=== PATIENT | female | born 1995 | race Caucasian/White ===

== ENCOUNTER → 2020-07-25 | Outpatient (CLI) | payer BC ==
[~2020-07-25] MED LIST: ONDA4ODT MM; Purinethol50 MG PO
== END | disposition home or self-care (01) ==
LOC: PLD 17:24 → LAB SHORT 17:24
DX: N94.10 Unspecified dyspareunia (principal); K62.89 Other specified diseases of anus and rectum; K51.50 Left sided colitis without complications
CPT/HCPCS: 83993

== ENCOUNTER 2020-11-18 04:14 | Emergency (ER) | payer BC ==
[~2020-11-18] VITALS: Ht 167.6 cm; Wt 74.8 kg
[2020-11-18] MEDS ORDERED: Purinethol50 MG PO (04:26)
[2020-11-18 04:44] LABS: Source, Urine Clean Catch
[2020-11-18 04:46] LABS: Appearance, Urine Clear (Clear); Blood, Urine 1+ (Neg); Color, Urine Yellow (P-Yellow); Glucose Qualitative, Urine Neg (Neg); Ketones, Urine Neg (Neg); Leukocyte Esterase, Urine Neg (Neg); Nitrite, Urine Neg (Neg); Protein, Urine Neg (Neg); Specific Gravity, Urine 1.025 (1.003-1.022); Urobilinogen, Urine NORM (Normal)
[2020-11-18 04:49] LABS: Bilirubin, Urine 1+ (Neg)
[2020-11-18 04:56] LABS: Red Blood Cells, Urine 0-2 /hpf (0-2); Squamous Epithelial Cells Few /hpf (Few)
[2020-11-18 04:57] LABS: Bacteria Many /hpf; Mucus Light (0-Heavy)
[2020-11-18 05:07] LABS: BASOPHILS ABSOLUTE AUTO 0.04 K/mm3 (0.00-0.23); BASOPHILS PERCENT AUTO 0 % (0-2); EOSINOPHILS ABSOLUTE AUTO 0.17 K/mm3 (0.00-0.68); EOSINOPHILS PERCENT AUTO 1 % (0-6); Hematocrit 41.7 % (33.0-51.0); Hemoglobin 13.9 g/dL (11.5-16.0); IMMATURE GRAN ABSOLUTE AUTO 0.09 K/mm3 (0.00-0.10); IMMATURE GRAN PERCENT AUTO 1 % (0-1); LYMPHOCYTES ABSOLUTE AUTO 1.79 K/mm3 (0.84-5.20); LYMPHOCYTES PERCENT AUTO 12 % (21-46); MONOCYTES ABSOLUTE AUTO 0.92 K/mm3 (0.16-1.47); MONOCYTES PERCENT AUTO 6 % (4-13); Mean Corpuscular HGB 31.1 pg (26.0-34.0); Mean Corpuscular HGB Conc 33.3 g/dL (31.5-36.5); Mean Corpuscular Volume 93 fL (80-100); Mean Platelet Volume 10.8 fL (9.1-12.4); NEUTROPHILS PERCENT AUTO 81 % (41-73); Platelet Count 330 K/mm3 (150-400); RDW Coefficient Variation 13.1 % (11.7-14.2); Red Blood Cell Count 4.47 M/mm3 (3.80-5.20); White Blood Cell Count 15.51 K/mm3 (4.00-11.30)
[2020-11-18 05:31] LABS: Alanine Aminotransfer (ALT/SGP 22 U/L (12-78); Albumin, Blood 3.7 g/dL (3.4-5.0); Albumin/Globulin Ratio 0.9 (0.8-1.8); Alk Phos 54 U/L (50-136); Anion Gap 6 mmol/L (6-16); Aspartate Aminotrans (AST/SGOT 15 U/L (12-37); Bilirubin, Total 0.9 mg/dL (0.1-1.0); Blood Urea Nitrogen 12 mg/dL (8-24); Bun/Creatinine Ratio 14.3 (12.0-20.0); CO2, Blood 24 mmol/L (21-32); Calcium, Blood 9.6 mg/dL (8.5-10.1); Chloride, Blood 107 mmol/L (98-108); Creatinine, Blood 0.84 mg/dL (0.40-1.00); Globulin, Blood 3.9 g/dL (2.2-4.0); Glomerular Filtration Rate >60 (60-); Glucose, Blood 103 mg/dL (70-99); Potassium, Blood 3.5 mmol/L (3.5-5.5); Sodium, Blood 137 mmol/L (136-145); Total Protein, Blood 7.6 g/dL (6.4-8.2); Troponin I <0.015 ng/mL (0.000-0.040)
[2020-11-18 07:28] LABS: Adenovirus F 40/41 Not Detected (NOT DETECT); Astrovirus Not Detected (NOT DETECT); Campylobacter Sp Not Detected (NOT DETECT); Cryptosporidium Not Detected (NOT DETECT); Cyclospora Cayetanensis Not Detected (NOT DETECT); E. Coli O157 Not Detected (NOT DETECT); Entamoeba Histolytica Not Detected (NOT DETECT); Enteroaggregative E. coli-EAEC Not Detected (NOT DETECT); Enteropathogenic E. coli-EPEC Detected (NOT DETECT); Enterotoxigenic E. coli-ETEC Not Detected (NOT DETECT); Giardia Lamblia Not Detected (NOT DETECT); Norovirus GI/GII Not Detected (NOT DETECT); Plesiomonas Shigelloides Not Detected (NOT DETECT); Rotavirus A Not Detected (NOT DETECT); Salmonella Sp Not Detected (NOT DETECT); Shiga Toxin-prod E. coli-STEC Not Detected (NOT DETECT); Shigella/Enteroin E. coli-EIEC Not Detected (NOT DETECT); Vibrio Cholerae Not Detected (NOT DETECT); Vibrio Sp Not Detected (NOT DETECT); Yersinia Enterocolitica Not Detected (NOT DETECT)
[2020-11-18 07:29] LABS: Sapovirus Not Detected (NOT DETECT)
[2020-11-18] MEDS ORDERED: ONDA4ODT MM (08:23)
== END 2020-11-18 08:42 | disposition home or self-care (01) ==
LOC: ER 04:14
PROVIDERS: Emergency Medicine
DX: A04.4 Other intestinal Escherichia coli infections (principal)
CPT/HCPCS: 0097U; 36415; 74177; 80053; 81001; 83690; 84484; 84703; 85025; 87086; 93005; 93010; 96374-59; 96375; 99284-25; A9270; J1885; J2405; Q9967

== ENCOUNTER → 2022-07-01 | Outpatient (CLI) | payer BC ==
[2022-07-03 04:09] LABS: CHLAMYDIA TRACHOMATIS, NAA Negative (Negative)
== END | disposition home or self-care (01) ==
LOC: LAB SHORT 13:50 → LAB 13:50
PROVIDERS: Registered Nurse Community Health
DX: Z34.92 Encounter for supervision of normal pregnancy, unspecified, second trimester (principal)
CPT/HCPCS: 87491; 87591

== ENCOUNTER → 2022-09-30 | Outpatient (CLI) | payer BC ==
[2022-09-30 17:52] LABS: Hematocrit 38.1 % (33.0-51.0); Hemoglobin 12.5 g/dL (11.5-16.0)
== END | disposition home or self-care (01) ==
LOC: LAB 17:09 → LAB SHORT 17:09
PROVIDERS: Registered Nurse Community Health
DX: Z34.92 Encounter for supervision of normal pregnancy, unspecified, second trimester (principal)
CPT/HCPCS: 82950; 85014; 85018

== ENCOUNTER → 2023-05-25 | Outpatient (CLI) | payer BC ==
[~2023-05-25] MED LIST changes: +DOCU100 PO; +MAGNESIUM OXID500 MG PO; +PRENATAL TABLE1 EAC2 PO
== END | disposition home or self-care (01) ==
LOC: LAB SHORT 14:35 → LAB 14:35
DX: R53.83 Other fatigue (principal)
CPT/HCPCS: 84443

== ENCOUNTER → 2024-03-06 | Outpatient (CLI) | payer BC ==
[2024-03-06 13:59] LABS: Source, Urine Clean Catch
[2024-03-06 15:50] LABS: BASOPHILS ABSOLUTE AUTO 0.03 K/mm3 (0.00-0.23); BASOPHILS PERCENT AUTO 0 % (0-2); EOSINOPHILS PERCENT AUTO 1 % (0-6); Hemoglobin 14.1 g/dL (11.5-16.0); IMMATURE GRAN ABSOLUTE AUTO 0.03 K/mm3 (0.00-0.10); IMMATURE GRAN PERCENT AUTO 0 % (0-1); LYMPHOCYTES ABSOLUTE AUTO 1.94 K/mm3 (0.84-5.20); LYMPHOCYTES PERCENT AUTO 22 % (21-46); MONOCYTES ABSOLUTE AUTO 0.54 K/mm3 (0.16-1.47); MONOCYTES PERCENT AUTO 6 % (4-13); Mean Corpuscular HGB 29.3 pg (26.0-34.0); Mean Corpuscular HGB Conc 33.6 g/dL (31.5-36.5); Mean Corpuscular Volume 87 fL (80-100); Mean Platelet Volume 10.9 fL (9.1-12.4); NEUTROPHILS ABSOLUTE AUTO 6.32 K/mm3 (1.96-9.15); NEUTROPHILS PERCENT AUTO 71 % (41-73); Platelet Count 288 K/mm3 (150-400); RDW Coefficient Variation 12.5 % (11.7-14.2); RDW Standard Deviation 39.7 fL (35.1-46.3); Red Blood Cell Count 4.82 M/mm3 (3.80-5.20); White Blood Cell Count 8.96 K/mm3 (4.00-11.30)
[2024-03-06 16:33] LABS: Appearance, Urine Clear (Clear); Bilirubin, Urine Neg (Neg); Blood, Urine Neg (Neg); Color, Urine Yellow (P-Yellow); Glucose Qualitative, Urine Neg (Neg); Ketones, Urine Neg (Neg); Leukocyte Esterase, Urine Neg (Neg); Nitrite, Urine Neg (Neg); Protein, Urine Neg (Neg); Urobilinogen, Urine NORM (Normal)
[2024-03-07 15:50] LABS: HEPATITIS B SURFACE ANTIGEN Negative (Negative)
[2024-03-08 10:05] LABS: HIV 1,2 COMBO ANTIGEN/ANTIBODY Negative (Negative)
[2024-03-08 11:53] LABS: HEPATITIS C AB CIA INTERP Negative (Negative); HEPATITIS C ANTIBODY CIA INDEX 0.12 IV
== END | disposition home or self-care (01) ==
LOC: LAB 13:56 → LAB SHORT 13:56
PROVIDERS: Registered Nurse Community Health
DX: Z34.91 Encounter for supervision of normal pregnancy, unspecified, first trimester (principal)
CPT/HCPCS: 81003; 84443; 86803; 87086; 87340; 87389

== ENCOUNTER → 2024-04-05 | Outpatient (CLI) | payer BC ==
[2024-04-05 18:50] LABS: Chlamydia Trachomatis Urine NOT DETECTED (NOT DETECT); Neisseria Gonorrhoea Urine NOT DETECTED (NOT DETECT)
== END ==
LOC: LAB 15:30 → LAB SHORT 15:30
PROVIDERS: Registered Nurse Community Health
DX: Z34.91 Encounter for supervision of normal pregnancy, unspecified, first trimester (principal)
CPT/HCPCS: 87491; 87591

== ENCOUNTER → 2024-08-10 | Outpatient (CLI) | payer BC ==
[2024-08-10 15:22] LABS: Hematocrit 33.5 % (33.0-51.0)
== END ==
LOC: LAB 13:08 → LAB SHORT 13:08
PROVIDERS: Registered Nurse Community Health
DX: Z34.93 Encounter for supervision of normal pregnancy, unspecified, third trimester (principal)
CPT/HCPCS: 82950; 85014; 85018

== ENCOUNTER → 2024-10-02 | Outpatient (CLI) | payer BC | LOC: LAB SHORT 11:00 → LAB 11:00 | DX: Z34.93 Encounter for supervision of normal pregnancy, unspecified, third trimester (principal) | CPT/HCPCS: 87081; 87150 ==

== ENCOUNTER 2024-10-11 15:54 | Inpatient (IN) | payer BC ==
[~2024-10-11] VITALS: Ht 167.6 cm; Wt 112.0 kg
[2024-10-11] VITALS (11 sets, daily range): BP systolic 122–142; BP diastolic 56–70
[2024-10-11] MEDS ORDERED: Calcium Carbonate 500 MG Tab Chew PO PRN (16:25)
[2024-10-11] MEDS ORDERED: OXYTOCIN/RINGER'S LACTATE 500 ML IV PRN (16:25)
[2024-10-11] MEDS ORDERED: Lactated Ringer's 1,000 ML IV PRN (16:25)
[2024-10-11] MEDS ORDERED: Misoprostol 200 MCG Tab BC PRN (16:25)
[2024-10-11] MEDS ORDERED: Carboprost Tromethamine 250 MCG/ML 1ML Amp IM PRN (16:25)
[2024-10-11] MEDS ORDERED: Acetaminophen 500 MG Tab PO PRN (16:25)
[2024-10-11] MEDS ORDERED: Misoprostol 200 MCG Tab PR PRN ×2 (16:25→16:40)
[2024-10-11] MEDS ORDERED: Oxytocin 10 Unit / ML Vial IM PRN (16:25)
[2024-10-11] MEDS ORDERED: Ondansetron HCl 2 MG / ML 2ML Vial IV PRN (16:25)
[2024-10-11] MEDS ORDERED: Methylergonovine Maleate 0.2MG / ML 1ML Amp IM PRN ×2 (16:25→16:40)
[2024-10-11] MEDS ORDERED: Tranexamic Acid 100 ML IV SCH (16:30)
[2024-10-11] MEDS ORDERED: OxyCODONE 5 mg/Acetamin 325 mg TABLET PO PRN (16:35)
[2024-10-11] MEDS ORDERED: Acetaminophen/Codeine 300-30 mg PO PRN (16:35)
[2024-10-11] MEDS ORDERED: Lactated Ringer's 1,000 ML IV SCH (16:40)
[2024-10-11] MEDS ORDERED: Acetaminophen 325 MG TABLET PO PRN (16:40)
[2024-10-11] MEDS ORDERED: Measles/Mumps/Rubella Vaccine 0.5 ML Vial SC SCH (16:40)
[2024-10-11] MEDS ORDERED: Ketorolac Tromethamine 30mg Vial IV PRN (16:40)
[2024-10-11] MEDS ORDERED: Lanolin Cream TOP PRN (16:40)
[2024-10-11] MEDS ORDERED: OXYTOCIN/RINGER'S LACTATE 500 ML IV SCH (16:45)
[2024-10-11] MEDS ORDERED: Docusate Sodium 100 MG Cap PO PRN (16:45)
[2024-10-11] MEDS ORDERED: Witch Hazel/Glycerin PADS TOP PRN (16:45)
[2024-10-11] MEDS ORDERED: Benzocaine Topical Anesthetic Spray 60GM TOP PRN (16:45)
[2024-10-11] MEDS ORDERED: Oxytocin 10 Unit / ML Vial IM ONE (16:45)
[2024-10-11] MEDS ORDERED: Diphth,Pertuss(Acell),Tet Vac 0.5 ML VIAL IM SCH (16:45)
[2024-10-11] MEDS ORDERED: Ibuprofen 400 MG Tab PO PRN (16:45)
[2024-10-11] MEDS ORDERED: Oxytocin 10 Unit / ML Vial IV ONE (18:09)
[2024-10-12 00:34] VITALS: BP 129/66
[2024-10-12 04:54] VITALS: BP 117/58
--- NOTE | 2024-10-12 04:58 | NUR ---
RN ENTERED ROOM AND PT HAD ELEVATED HER BED ELOISE TO MORE EASILY REACH BABYS CRIB. BED LOWERED TO ITS LOWEST POSITION AND PT EDUCATED ON FALL SAFETY. VERBALIZED UNDERSTANDING.
[2024-10-12 06:19] LABS: BASOPHILS ABSOLUTE AUTO 0.04 K/mm3 (0.00-0.23); BASOPHILS PERCENT AUTO 0 % (0-2); EOSINOPHILS ABSOLUTE AUTO 0.25 K/mm3 (0.00-0.68); EOSINOPHILS PERCENT AUTO 2 % (0-6); Hemoglobin 12.1 g/dL (11.5-16.0); IMMATURE GRAN ABSOLUTE AUTO 0.12 K/mm3 (0.00-0.10); IMMATURE GRAN PERCENT AUTO 1 % (0-1); LYMPHOCYTES PERCENT AUTO 23 % (21-46); MONOCYTES ABSOLUTE AUTO 1.13 K/mm3 (0.16-1.47); MONOCYTES PERCENT AUTO 7 % (4-13); Mean Corpuscular HGB 28.3 pg (26.0-34.0); Mean Corpuscular HGB Conc 32.7 g/dL (31.5-36.5); Mean Corpuscular Volume 86 fL (80-100); Mean Platelet Volume 11.6 fL (9.1-12.4); NEUTROPHILS ABSOLUTE AUTO 10.56 K/mm3 (1.96-9.15); NEUTROPHILS PERCENT AUTO 67 % (41-73); Platelet Count 191 K/mm3 (150-400); RDW Coefficient Variation 14.3 % (11.7-14.2); RDW Standard Deviation 44.7 fL (35.1-46.3); Red Blood Cell Count 4.28 M/mm3 (3.80-5.20)
[2024-10-12 07:25] VITALS: BP 117/57
[2024-10-12] MEDS ORDERED: Prenatal Vit/FE Fumarate/FA 1 Tab PO SCH (09:00)
--- NOTE | 2024-10-12 11:02 | NUR ---
Assumed care from Nani Chandra RN. Pt in bed, visiting w/family. Pain medication given per request. Denies other needs at this time.
[2024-10-12 14:38] VITALS: BP 123/58
[2024-10-12] MEDS ORDERED: ACET500 PO (17:15)
[2024-10-12] MEDS ORDERED: TUCKS1 EACH TOP (17:16)
[2024-10-12] MEDS ORDERED: IBUP800 PO (17:17)
[2024-10-12] MEDS ORDERED: LANOLIN40 GM TOP (17:18)
[2024-10-12 18:32] VITALS: BP 121/77
== END 2024-10-12 18:37 | disposition home or self-care (01) | DRG 807 ==
LOC: OBS 15:54 → BC 15:59
PROVIDERS: ADMIT Registered Nurse Community Health
PROC: 10E0XZZ Delivery of Products of Conception, External Approach (ICD-10-PCS; principal; 2024-10-11)
PROC: 0KQM0ZZ Repair Perineum Muscle, Open Approach (ICD-10-PCS; 2024-10-11)
DX: O70.1 Second degree perineal laceration during delivery (principal); Z37.0 Single live birth; Z3A.37 37 weeks gestation of pregnancy
CPT/HCPCS: 36415; 85025; 99214; A9270; J2590

== ENCOUNTER → 2025-05-09 | Outpatient (CLI) | payer BC ==
[~2025-05-09] MED LIST changes: +ACET500 PO; +IBUP800 PO; +LANOLIN40 GM TOP; +TUCKS1 EACH TOP
[2025-05-09 23:30] LABS: C DIFFICILE DNA NEGATIVE (Negative)
== END ==
LOC: LAB SHORT 16:16 → LAB 16:16
PROVIDERS: Internal Medicine Gastroenterology
DX: K92.1 Melena (principal); K51.50 Left sided colitis without complications; K52.9 Noninfective gastroenteritis and colitis, unspecified
CPT/HCPCS: 87015; 87045; 87046; 87205; 87493; 87899